=== PATIENT | female | born 1995 | race Caucasian/White ===

== ENCOUNTER → 2018-03-16 | Outpatient (CLI) | payer OTHER ==
--- NOTE | 2018-03-16 16:25 | RADIOLOGY IMAGING REPORT ---
FACILITY: [facility] [place] PATIENT NAME: Pamella Mcknight : 1995 MR: [id number] V: [id number] EXAM DATE: ORDERING PHYSICIAN: RAMON STEWART TECHNOLOGIST: Location: [facility] [place] Patient: Pamella Mcknight : 1995 Visit/Account:[id number] Date of Sevice: 03/16/2018 US SINGLE ORGAN on the bladder HISTORY: Incontinence, progressively worse COMPARISON: None. FINDINGS: Urinary bladder prevoid volume was 65.5 mL. Postvoid residual was 1.7 mm. Bilateral ureteral jets a re present. No abnormality of the bladder was demonstrated. No evidence of intraluminal mass or kyrie ating debris within the urine IMPRESSION: Unremarkable bladder ultrasound Report Dictated By: Nhung Lazaro MD at 03/16/2018 4:18 PM Report E-Signed By: Nhung Lazaro MD at 03/16/2018 4:19 PM WSN:[email or web address]
== END ==
LOC: US 14:46
DX: N39.46 Mixed incontinence (principal)
CPT/HCPCS: 76705

== ENCOUNTER → 2018-04-22 | Outpatient (REF) | payer OTHER ==
[2018-04-22 14:38] LABS: PLATELET COUNT, AUTOMATED 260 K/uL (150-450)
== END ==
PROVIDERS: ATTEND Physician Assistant Medical
DX: R10.9 Unspecified abdominal pain (principal)
CPT/HCPCS: 82040; 82247; 82310; 82374; 82435; 82565; 82947; 84075; 84132; 84155; 84295; 84450; 84460; 84520; 85025